=== PATIENT | female | born 1975 | race Two or more races ===

== ENCOUNTER → 2016-07-07 | Outpatient (CLI) | payer BC | LOC: RAD 13:49 | PROVIDERS: ATTEND Psychiatry & Neurology Neurology | DX: R51 Headache (principal); M54.2 Cervicalgia; R47.9 Unspecified speech disturbances; R41.3 Other amnesia; M47.892 Other spondylosis, cervical region | CPT/HCPCS: 70551; 72141 ==

== ENCOUNTER 2019-02-24 09:06 | Observation (INO) | payer BC ==
--- NOTE | 2019-02-24 09:42 | ER Document Report ---
ED Medical Screen (RME) - General Chief Complaint: Chest Pain Stated Complaint: CHEST PAIN Time Seen by Provider: 02/24/19 09:38 Primary Care Provider: DAVID JENNINGS MD [Primary Care Provider] - Follow up as needed TRAVEL OUTSIDE OF THE [place] IN LAST 30 DAYS: No - HPI Notes: 02/24/19 09:41 Patient is a 43-year-old female with a history of hypertension, seizure disorder who presents complaining of having left-sided chest pain that radiates to her left arm and left axilla that began at 9 PM last night and resolved at 4:30 AM today. Patient states that she did take her blood pressure pill around 6:00 this morning. She is currently feeling well. She did have some associated nausea, but did not have any shortness of breath or trouble breathing. Denies fever or recent illness otherwise. Denies any prolonged immobilization, distance travel, recent surgery/trauma, personal cancer history, hormone use, or previous DVT/PE. I have treated and performed a rapid initial assessment of this patient. A comprehensive ED assessment and evaluation of the patient, analysis of test results and completion of medical decision making process will be conducted by additional ED providers. PHYSICAL EXAMINATION: GENERAL: Well-appearing, well-nourished and in no acute distress. A&Ox4. Answers questions appropriately. LUNGS: Breath sounds clear to auscultation bilaterally and equal. No wheezes rales or rhonchi. HEART: Regular rate and rhythm without murmurs, rubs, gallops. Extremities: No cyanosis, clubbing, or edema b/l. Jamie negative bilaterally. No lower extremity asymmetry. NEUROLOGICAL: Normal speech, normal gait. PSYCH: Normal mood, normal affect. - Related Data Allergies/Adverse Reactions: peanut Allergy (Severe, Verified 09/01/15 07:17) Anaphylaxis Sulfa (Sulfonamide Antibiotics) Allergy (Intermediate, Verified 08/24/15 09:58) swell,redness Past Medical History - Social History Chew tobacco use (# tins/day): No Frequency of alcohol use: None Drug Abuse: None - Past Medical History Cardiac Medical History: Reports: Hx Hypertension - age 33 Denies: Hx Coronary Artery Disease, Hx Heart Attack Pulmonary Medical History: Reports: Hx Bronchitis Denies: Hx Asthma, Hx COPD, Hx Pneumonia Neurological Medical History: Denies: Hx Cerebrovascular Accident, Hx Seizures - after 2nd delivery 1 episode not sure it was seizure/no recall x 9 days GI Medical History: Reports: Hx Ulcerative Colitis Musculoskeltal Medical History: Reports Hx Arthritis - hands/right knee Past Surgical History: Reports: Hx Section - Immunizations Hx Diphtheria, Pertussis, Tetanus Vaccination: Yes Physical Exam - Vital signs Vitals: Temp Pulse Resp BP Pulse Ox 98.0 F 114 H 12 150/101 H 96 02/24/19 09:30 02/24/19 09:30 02/24/19 09:30 02/24/19 09:30 02/24/19 09:30 Course - Vital Signs Vital signs: Temp Pulse Resp BP Pulse Ox 98.0 F 114 H 12 150/101 H 96 02/24/19 09:30 02/24/19 09:30 02/24/19 09:30 02/24/19 09:30 02/24/19 09:30 Doctor's Discharge - Discharge Referrals: DAVID JENNINGS MD [Primary Care Provider] - Follow up as needed
[2019-02-24 10:16] LABS: ABSOLUTE BASOPHILS # (AUTO) 0.1 10^3/uL (0.0-0.2); ABSOLUTE EOSINOPHILS # (AUTO) 0.9 10^3/uL (0.0-0.6); ABSOLUTE LYMPHOCYTES (AUTO) 2.5 10^3/uL (0.5-4.7); ABSOLUTE MONOCYTES (AUTO) 0.5 10^3/uL (0.1-1.4); ABSOLUTE NEUT (AUTO) 5.7 10^3/uL (1.7-8.2); BASOPHILS % (AUTO) 0.8 % (0-2); EOSINOPHILS % (AUTO) 8.9 % (0-6); HEMOGLOBIN 14.4 g/dL (12.0-15.5); LYMPHOCYTES % (AUTO) 25.6 % (13-45); MEAN CORPUSCULAR HEMOGLOBIN 29.9 pg (27.0-33.4); MEAN CORPUSCULAR HGB CONC 33.4 g/dL (32.0-36.0); MEAN CORPUSCULAR VOLUME 90 fl (80-97); MONOCYTES % (AUTO) 5.5 % (3-13); PLATELET COUNT 319 10^3/uL (150-450); RED BLOOD COUNT 4.81 10^6/uL (3.72-5.28); RED CELL DISTRIBUTION WIDTH 14.3 % (11.5-14.0); SEGMENTED NEUTROPHILS % (AUTO) 59.2 % (42-78); TOTAL CELLS COUNTED % (AUTO) 100 %; WHITE BLOOD COUNT 9.7 10^3/uL (4.0-10.5)
[2019-02-24 10:26] LABS: APPEARANCE,URINE SLIGHTLY-CLOUDY; BILIRUBIN,URINE NEGATIVE (NEGATIVE); COLOR,URINE YELLOW; GLUCOSE, URINE NEGATIVE (NEGATIVE); KETONES,URINE NEGATIVE (NEGATIVE); PROTEIN,URINE NEGATIVE (NEGATIVE); URINE SPECIFIC GRAVITY 1.013; UROBILINOGEN,URINE NEGATIVE mg/dL (<2.0)
[2019-02-24 10:41] LABS: ALBUMIN 4.5 g/dL (3.5-5.0); ALKALINE PHOSPHATASE 96 U/L (38-126); ANION GAP 10 (5-19); ASPARTATE AMINO TRANSFERASE 26 U/L (14-36); BILIRUBIN,DIRECT 0.3 mg/dL (0.0-0.4); BILIRUBIN,TOTAL 0.3 mg/dL (0.2-1.3); BLOOD UREA NITROGEN 14 mg/dL (7-20); CARBON DIOXIDE 28 mmol/L (22-30); CHLORIDE 103 mmol/L (98-107); GLUCOSE 108 mg/dL (75-110); POTASSIUM 4.4 mmol/L (3.6-5.0); TOTAL PROTEIN 8.1 g/dL (6.3-8.2)
--- NOTE | 2019-02-24 11:10 | RADIOLOGY REPORT (SQ) ---
EXAM DESCRIPTION: CHEST 2 VIEWS COMPLETED DATE/TIME: 02/24/2019 10:42 am REASON FOR STUDY: CP COMPARISON: None. EXAM PARAMETERS: NUMBER OF VIEWS: two views TECHNIQUE: Digital Frontal and Lateral radiographic views of the chest acquired. RADIATION DOSE: NA LIMITATIONS: none FINDINGS: LUNGS AND PLEURA: No opacities, masses or pneumothorax. No pleural effusion. MEDIASTINUM AND HILAR STRUCTURES: No masses or contour abnormalities. HEART AND VASCULAR STRUCTURES: Heart normal size. No evidence for failure. BONES: No acute findings. HARDWARE: None in the chest. OTHER: Gas-filled colonic loops within the right upper quadrant. IMPRESSION: No evidence of acute intrathoracic process. TECHNICAL DOCUMENTATION: JOB ID: [id number] [employer]- All Rights Reserved Reading location - IP/workstation name: [email or web address]
[2019-02-24] MEDS ORDERED: ASPIRIN 325 MG TABLET PO ONE (12:26)
--- NOTE | 2019-02-24 12:34 | ER Document Report ---
ED Cardiac - General Chief Complaint: Chest Pain Stated Complaint: CHEST PAIN Time Seen by Provider: 02/24/19 09:38 Primary Care Provider: DAVID JENNINGS MD [NO LOCAL MD] - Follow up as needed Mode of Arrival: Ambulatory Information source: Patient TRAVEL OUTSIDE OF THE [place] IN LAST 30 DAYS: No - HPI Patient complains to provider of: Chest pain - Pt with h/o HTN with onset of L- sided CP beginning Last night. Pain resolved in early am but recurred with radiation down L arm just VISCOSITY TESTER. Pt. with FH of [place] in father. - Related Data Allergies/Adverse Reactions: peanut Allergy (Severe, Verified 09/01/15 07:17) Anaphylaxis Sulfa (Sulfonamide Antibiotics) Allergy (Intermediate, Verified 08/24/15 09:58) swell,redness Past Medical History - General Information source: Patient - Social History Smoking Status: Never Smoker Chew tobacco use (# tins/day): No Frequency of alcohol use: None Drug Abuse: None Family History: CAD Patient has suicidal ideation: No Patient has homicidal ideation: No - Past Medical History Cardiac Medical History: Reports: Hx Hypertension - age 33 Denies: Hx Coronary Artery Disease, Hx Heart Attack Pulmonary Medical History: Reports: Hx Bronchitis Denies: Hx Asthma, Hx COPD, Hx Pneumonia Neurological Medical History: Denies: Hx Cerebrovascular Accident, Hx Seizures - after 2nd delivery 1 episode not sure it was seizure/no recall x 9 days GI Medical History: Reports: Hx Ulcerative Colitis Musculoskeletal Medical History: Reports Hx Arthritis - hands/right knee Past Surgical History: Reports: Hx Section - Immunizations Hx Diphtheria, Pertussis, Tetanus Vaccination: Yes Review of Systems - Review of Systems Constitutional: No symptoms reported EENT: No symptoms reported Cardiovascular: See HPI, Chest pain Respiratory: No symptoms reported Gastrointestinal: No symptoms reported Musculoskeletal: No symptoms reported Neurological/Psychological: No symptoms reported -: Yes All other systems reviewed and negative Physical Exam - Vital signs Vitals: Temp Pulse Resp BP Pulse Ox 98.0 F 114 H 12 150/101 H 96 02/24/19 09:30 02/24/19 09:30 02/24/19 09:30 02/24/19 09:30 02/24/19 09:30 - General General appearance: Appears well In distress: None - HEENT Head: Normocephalic Pupils: PERRL Pharynx: Normal Neck: Normal - Respiratory Respiratory status: No respiratory distress Breath sounds: Normal - Cardiovascular Rhythm: Regular Heart sounds: Normal auscultation Murmur: No - Abdominal Bowel sounds: Normal Tenderness: Nontender - Extremities General upper extremity: Normal inspection General lower extremity: Normal inspection - Neurological Neuro grossly intact: Yes Cognition: Normal Orientation: AAOx4 Course - Re-evaluation Re-evalutation: 02/24/19 13:28 pt. feels much better after ASA and NTG -- I will call hospitalist for admission. - Vital Signs Vital signs: Temp Pulse Resp BP Pulse Ox 98.0 F 114 H 19 139/103 H 99 02/24/19 09:30 02/24/19 09:30 02/24/19 13:12 02/24/19 13:12 02/24/19 13:12 - Laboratory Result Diagrams: 02/24/19 09:54 02/24/19 09:54 Laboratory results interpreted by me: 02/24/19 02/24/19 09:54 09:54 RDW 14.3 H Eos % (Auto) 8.9 H Absolute Eos (auto) 0.9 H Est GFR (MDRD) Non-Af 59 L - Diagnostic Test Radiology reviewed: Reports reviewed - cxr- nad - EKG Interpretation by Me EKG shows normal: Sinus rhythm Rate: Tachycardia Rhythm: NSR - sinus tach. without acute change - Consults arben Schwarz Time consulted: 13:30 Consulted provider: will come to ER Critical Care Note - Critical Care Note Total time excluding time spent on procedures (mins): 30 Discharge - Discharge Clinical Impression: Chest pain Qualifiers: Chest pain type: other chest pain Qualified Code(s): R07.89 - Other chest pain; R07.8 - Other chest pain Condition: Stable Disposition: ADMITTED OBSERVATION Admitting Provider: Jaquelin (Hospitalist) Unit Admitted: Telemetry Referrals: DAVID JENNINGS MD [NO LOCAL MD] - Follow up as needed
[2019-02-24] MEDS ORDERED: CLONIDINE HCL 0.2 MG TABLET PO ONE (12:37)
[2019-02-24] MEDS ORDERED: NITROGLYCERIN 2% OINTMENT 1 GM PACKET TP ONE (13:24)
--- NOTE | 2019-02-24 13:52 | EKG REPORT ---
SEVERITY:- ABNORMAL ECG - SINUS TACHYCARDIA ABNRM R PROG, CONSIDER ASMI OR LEAD PLACEMENT : Confirmed by: Deyvi Coffey MD 24-Feb-2019 13:51:54
[2019-02-24] MEDS ORDERED: ALBUTEROL SULFATE 0.083% NEB 2.5 MG/3 ML AMPUL NEB PRN (14:11)
[2019-02-24] MEDS ORDERED: ONDANSETRON HCL INJ/PF 4 MG/2 ML SDV IV PRN (14:11)
[2019-02-24] MEDS ORDERED: PROMETHAZINE HCL INJ 25 MG/1 ML VIAL IV PRN (14:11)
[2019-02-24] MEDS ORDERED: MAG HYDROX/AL HYDROX/SIMETH SUSP 30 ML UDCUP PO PRN (14:11)
[2019-02-24] MEDS ORDERED: ACETAMINOPHEN 325 MG TABLET PO PRN (14:11)
[2019-02-24] MEDS ORDERED: MORPHINE SULFATE 10 MG/ML INJ IV PRN (14:18)
[2019-02-24] MEDS ORDERED: LORATADINE 10 MG TABLET PO PRN (18:01)
[2019-02-24] MEDS ORDERED: HYDRALAZINE HCL INJ/PF 20 MG/1 ML SDV IV PRN (18:02)
--- NOTE | 2019-02-24 18:07 | PDOC H&P ---
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 She denies alleviating or aggravating factors. Evaluation in the emergency department revealed Hypertension with blood pressure s 156/118, tachycardia (HR 110), unremarkable CBC, chemistry, negative troponin, negative d-dimer, negative lipase and amylase, normal urinalysis, benign EKG and chest x-ray. She is referred to the hospitalist service for admission and management of the above-stated complaints and findings. Past Medical History Cardiac Medical History: Reports: Hypertension Denies: Coronary Artery Disease, Myocardial Infarction Pulmonary Medical History: Reports: Bronchitis Denies: Asthma, Chronic Obstructive Pulmonary Disease (COPD), Pneumonia EENT Medical History: Reports: None Neurological Medical History: Reports: Migraine, Seizures Endocrine Medical History: Reports: None Renal/ Medical History: Reports: None Malignancy Medical History: Reports: None GI Medical History: Reports: Ulcerative Colitis Musculoskeltal Medical History: Reports: Arthritis - hands/right knee Skin Medical History: Reports: None Psychiatric Medical History: Reports: None Hematology: Reports: Anemia Infectious Medical History: Reports: None Past Surgical History Past Surgical History: Reports: Section, Other - Total colectomy Social History Information Source: Patient Lives with: Family Smoking Status: Never Smoker Electronic Cigarette use?: No Frequency of Alcohol Use: None Hx Recreational Drug Use: No Hx Prescription Drug Abuse: No - Advance Directive Resuscitation Status: Full Code Surrogate healthcare decision maker:: Patient's Family History Family History: CAD Parental Family History Reviewed: Yes Children Family History Reviewed: Yes Sibling(s) Family History Reviewed.: Yes Medication/Allergy Home Medications: Lisinopril 10 mg PO DAILY 08/24/15 Loratadine [Claritin 10 mg Tablet] 10 mg PO DAILYP PRN 08/24/15 Cyclobenzaprine HCl [Flexeril 5 mg Tablet] 5 mg PO Q8HP PRN 02/24/19 Divalproex Sodium [Depakote Er 250 Mg Tablet] 750 mg PO QHS 02/24/19 Allergies/Adverse Reactions: peanut Allergy (Severe, Verified 09/01/15 07:17) Anaphylaxis Sulfa (Sulfonamide Antibiotics) Allergy (Intermediate, Verified 08/24/15 09:58) swell,redness Review of Systems Constitutional: ABSENT: chills, fever(s), headache(s), weight gain, weight loss Eyes: ABSENT: visual disturbances Ears: ABSENT: hearing changes Cardiovascular: PRESENT: as per HPI, chest pain. ABSENT: dyspnea on exertion, edema, orthropnea, palpitations Respiratory: ABSENT: cough, hemoptysis Gastrointestinal: ABSENT: abdominal pain, constipation, diarrhea, hematemesis, hematochezia, nausea, vomiting Genitourinary: ABSENT: dysuria, hematuria Musculoskeletal: ABSENT: joint swelling Integumentary: ABSENT: rash, wounds Neurological: ABSENT: abnormal gait, abnormal speech, confusion, dizziness, focal weakness, syncope Psychiatric: ABSENT: anxiety, depression, homidical ideation, suicidal ideation Endocrine: ABSENT: cold intolerance, heat intolerance, polydipsia, polyuria Hematologic/Lymphatic: ABSENT: easy bleeding, easy bruising Physical Exam Vital Signs: Temp Pulse Resp BP Pulse Ox 98.0 F 114 H 14 100/68 95 02/24/19 09:30 02/24/19 09:30 02/24/19 17:01 02/24/19 17:01 02/24/19 17:01 Intake & Output 02/23/19 02/24/19 02/25/19 06:59 06:59 06:59 Weight 71.3 kg General appearance: PRESENT: no acute distress, cooperative, well-developed, well-nourished - Overweight Head exam: PRESENT: atraumatic, normocephalic Eye exam: PRESENT: conjunctiva pink, EOMI, PERRLA. ABSENT: scleral icterus Ear exam: PRESENT: normal external ear exam Mouth exam: PRESENT: moist, tongue midline Neck exam: ABSENT: carotid bruit, JVD, lymphadenopathy, thyromegaly Respiratory exam: PRESENT: clear to auscultation jules, symmetrical, unlabored. ABSENT: rales, rhonchi, wheezes Cardiovascular exam: PRESENT: RRR. ABSENT: diastolic murmur, rubs, systolic murmur Pulses: PRESENT: normal dorsalis pedis pul Vascular exam: PRESENT: normal capillary refill GI/Abdominal exam: PRESENT: normal bowel sounds, soft. ABSENT: distended, guarding, mass, organolmegaly, rebound, tenderness Rectal exam: PRESENT: deferred Extremities exam: PRESENT: full ROM. ABSENT: calf tenderness, clubbing, pedal edema Musculoskeletal exam: PRESENT: ambulatory Neurological exam: PRESENT: alert, awake, oriented to person, oriented to place, oriented to time, oriented to situation, CN II-XII grossly intact. ABSENT: mot or sensory deficit Psychiatric exam: PRESENT: appropriate affect, normal mood. ABSENT: homicidal ideation, suicidal ideation Skin exam: PRESENT: dry, intact, warm. ABSENT: cyanosis, rash Results Laboratory Results: 02/24/19 09:54 02/24/19 09:54 02/24/19 02/24/19 02/24/19 09:54 09:54 09:54 WBC 9.7 RBC 4.81 Hgb 14.4 Hct 43.0 MCV 90 MCH 29.9 MCHC 33.4 RDW 14.3 H Plt Count 319 Seg Neutrophils % 59.2 Sodium 140.9 Potassium 4.4 Chloride 103 Carbon Dioxide 28 Anion Gap 10 BUN 14 Creatinine 1.02 Est GFR ( Amer) > 60 Glucose 108 Calcium 10.0 Total Bilirubin 0.3 AST 26 Alkaline Phosphatase 96 Total Protein 8.1 Albumin 4.5 Amylase Lipase Urine Color YELLOW Urine Appearance SLIGHTLY-CLOUDY Urine pH 6.0 Ur Specific [place] 1.013 Urine Protein NEGATIVE Urine Glucose (UA) NEGATIVE Urine Ketones NEGATIVE Urine Blood NEGATIVE Urine RBC (Auto) 0 02/24/19 09:54 WBC RBC Hgb Hct MCV MCH MCHC RDW Plt Count Seg Neutrophils % Sodium Potassium Chloride Carbon Dioxide Anion Gap BUN Creatinine Est GFR ( Amer) Glucose Calcium Total Bilirubin AST Alkaline Phosphatase Total Protein Albumin Amylase 81 Lipase 78.7 Urine Color Urine Appearance Urine pH Ur Specific [place] Urine Protein Urine Glucose (UA) Urine Ketones Urine Blood Urine RBC (Auto) 02/24/19 02/24/19 09:54 15:32 Troponin I < 0.012 < 0.012 Impressions: Chest X-Ray 02/24/19 09:42 IMPRESSION: No evidence of acute intrathoracic process. Assessment and Plan - Diagnosis (1) Hypertensive urgency Is this a current diagnosis for this admission?: Yes Plan: Blood pressure is now well controlled with medications as provided by the ED provider (nitroglycerin patch, hydralazine, and clonidine). We will continue her home dose lisinopril. Cardiac diet. IV hydralazine as needed for blood pressure control. (2) Chest pain Is this a current diagnosis for this admission?: Yes Plan: EKG is negative for acute findings. Chest x-ray benign. Troponins negative x2; will continue to trend. Patient is admitted to the medical floor on continuous cardiac telemetry. Daily aspirin and statin therapy. We will check TSH, lipid panel, and A1c with a.m. lab work. Stress test in the morning. (3) Seizure disorder Is this a current diagnosis for this admission?: Yes Plan: Continue home dose Depakote. - Time Time Spent with patient: 35 or more minutes Medications reviewed and adjusted accordingly: Yes Anticipated discharge: Home Within: within 24 hours
[2019-02-24] MEDS ORDERED: ATORVASTATIN CALCIUM 20 MG TABLET PO SCH (22:00)
[2019-02-24] MEDS ORDERED: DIVALPROEX SODIUM 250 MG TAB.SR.24H PO SCH (22:00)
[2019-02-24] MEDS: FAMOTIDINE 20 MG TABLET PO SCH (22:44)
[2019-02-24] MEDS: HEPARIN SOD (PORCINE) 5,000 UNIT/ML 1 ML VIAL SUBCUT SCH (22:44)
[2019-02-25] MEDS: HEPARIN SOD (PORCINE) 5,000 UNIT/ML 1 ML VIAL SUBCUT SCH (05:31)
[2019-02-25 07:13] LABS: HEMATOCRIT 40.6 % (36.0-47.0); HEMOGLOBIN 13.6 g/dL (12.0-15.5); MEAN CORPUSCULAR HGB CONC 33.6 g/dL (32.0-36.0); MEAN CORPUSCULAR VOLUME 89 fl (80-97); PLATELET COUNT 275 10^3/uL (150-450); RED BLOOD COUNT 4.55 10^6/uL (3.72-5.28); RED CELL DISTRIBUTION WIDTH 14.1 % (11.5-14.0); WHITE BLOOD COUNT 7.5 10^3/uL (4.0-10.5)
[2019-02-25 07:34] LABS: ANION GAP 9 (5-19); BLOOD UREA NITROGEN 15 mg/dL (7-20); CALCIUM 9.2 mg/dL (8.4-10.2); CARBON DIOXIDE 28 mmol/L (22-30); CHLORIDE 104 mmol/L (98-107); CHOLESTEROL 190.14 mg/dL (0-200); GLUCOSE 87 mg/dL (75-110); POTASSIUM 4.8 mmol/L (3.6-5.0); TRIGLYCERIDES 180 mg/dL (<150)
[2019-02-25 07:44] LABS: DIRECT LDL 127 mg/dL (<100)
[2019-02-25 08:39] VITALS: BP 104/69
[2019-02-25] MEDS ORDERED: LISINOPRIL 10 MG TABLET PO SCH (10:00)
[2019-02-25] MEDS ORDERED: ASPIRIN 81 MG TABLET, CHEWABLE PO SCH (10:00)
[2019-02-25] MEDS ORDERED: DOCUSATE SODIUM 100 MG CAPSULE PO SCH (10:00)
[2019-02-25] MEDS: FAMOTIDINE 20 MG TABLET PO SCH (10:07)
--- NOTE | 2019-02-25 16:49 | PDOC DISCHARGE SUMMARY ---
Impression - Admit/DC Date/PCP Admission Date/Primary Care Provider: 02/24/19 15:41 Discharge Date: 02/25/19 - Discharge Diagnosis (1) Hypertensive urgency Is this a current diagnosis for this admission?: Yes (2) Chest pain Is this a current diagnosis for this admission?: Yes (3) Seizure disorder Is this a current diagnosis for this admission?: Yes - Additional Information Resuscitation Status: Full Code Discharge Diet: Cardiac Discharge Activity: Activity As Tolerated, Balance Activity w/Rest, Slowly Increase Activity Referrals: DAVID JENNINGS MD [NO LOCAL MD] - Follow up as needed DACIA HAQ MD [ACTIVE STAFF] - (Follow up within 2-4 weeks) Prescriptions: Atorvastatin Calcium [Lipitor 10 mg Tablet] 10 mg PO QHS #30 tablet Home Medications: Lisinopril 10 mg PO DAILY 08/24/15 Loratadine [Claritin 10 mg Tablet] 10 mg PO DAILYP PRN 08/24/15 Cyclobenzaprine HCl [Flexeril 5 mg Tablet] 5 mg PO Q8HP PRN 02/24/19 Divalproex Sodium [Depakote ER 250 mg Tablet] 750 mg PO QHS 02/24/19 Acetaminophen [Tylenol 325 mg Tablet] 650 mg PO Q4HP PRN tablet 02/25/19 Aspirin [Aspirin 81 mg Chewable Tablet] 81 mg PO DAILY tab.chew 02/25/19 Atorvastatin Calcium [Lipitor 10 mg Tablet] 10 mg PO QHS #30 tablet 02/25/19 Docusate Sodium [Colace 100 mg Capsule] 100 mg PO DAILY capsule 02/25/19 History of Present Illiness History of Present Illness: GLENN NAPIER is a 43 year old female with a past medical history significant for HTN and UC s/p total colectomy (now w/ J-pouch) who presented to the [facility] today with a complaint of sudden onset chest pain radiating to her left shoulder beginning last night associated with nausea (no emesis). She denies alleviating or aggravating factors. Evaluation in the emergency department revealed Hypertension with blood pressures 156/118, tachycardia (HR 110), unremarkable CBC, chemistry, negative troponin, negative d-dimer, negative lipase and amylase, normal urinalysis, benign EKG and chest x-ray. She is referred to the hospitalist service for admission and management of the above-stated complaints and findings. Hospital Course Hospital Course: The patient was admitted to the medical floor on continuous cardiac telemetry. She had no further episodes of chest discomfort overnight. She remained in normal sinus rhythm. Cardiac enzymes trended normal. A1c was normal, TSH is normal, and lipid panel was borderline; after discussion with patient, patient is started on low-dose atorvastatin at discharge. The patient did not require any further interventions for her hypertension following admission from the ED; BP has remained stable on her home regimen only. The patient is low risk for acute cardiac event; therefore she is discharged to home with instructions to follow-up with her primary care provider within 1 week, cardiology within 2 to 4 weeks for further cardiac evaluation, and to return to the emergency department as needed for concerning symptoms. Patient is discharged home in stable condition. She is advised to continue her home dose lisinopril. She is started on low dose atorvastatin. Dietary and lifestyle modification are encouraged. She is instructed to return to the emergency department as needed for concerning symptoms. Physical Exam Vital Signs: Temp Pulse Resp BP Pulse Ox 97.6 F 81 17 104/69 100 02/25/19 10:19 02/25/19 10:19 02/25/19 10:19 02/25/19 10:19 02/25/19 10:19 Intake & Output 02/24/19 02/25/19 02/26/19 06:59 06:59 06:59 Weight 71.3 kg General appearance: PRESENT: no acute distress, well-developed, well-nourished Head exam: PRESENT: atraumatic, normocephalic Eye exam: PRESENT: conjunctiva pink, EOMI, PERRLA. ABSENT: scleral icterus Ear exam: PRESENT: normal external ear exam Mouth exam: PRESENT: moist, tongue midline Neck exam: ABSENT: carotid bruit, JVD, lymphadenopathy, thyromegaly Respiratory exam: PRESENT: clear to auscultation jules. ABSENT: rales, rhonchi, wheezes Cardiovascular exam: PRESENT: RRR. ABSENT: diastolic murmur, rubs, systolic murmur Pulses: PRESENT: normal dorsalis pedis pul Vascular exam: PRESENT: normal capillary refill GI/Abdominal exam: PRESENT: normal bowel sounds, soft. ABSENT: distended, guarding, mass, organolmegaly, rebound, tenderness Rectal exam: PRESENT: deferred Extremities exam: PRESENT: full ROM. ABSENT: calf tenderness, clubbing, pedal edema Neurological exam: PRESENT: alert, awake, oriented to person, oriented to place, oriented to time, oriented to situation, CN II-XII grossly intact. ABSENT: motor sensory deficit Psychiatric exam: PRESENT: appropriate affect, normal mood. ABSENT: homicidal ideation, suicidal ideation Skin exam: PRESENT: dry, intact, warm. ABSENT: cyanosis, rash Results Laboratory Results: WBC 7.5 10^3/uL (4.0-10.5) 02/25/19 06:59 RBC 4.55 10^6/uL (3.72-5.28) 02/25/19 06:59 Hgb 13.6 g/dL (12.0-15.5) 02/25/19 06:59 Hct 40.6 % (36.0-47.0) 02/25/19 06:59 MCV 89 fl (80-97) 02/25/19 06:59 MCH 30.0 pg (27.0-33.4) 02/25/19 06:59 MCHC 33.6 g/dL (32.0-36.0) 02/25/19 06:59 RDW 14.1 % (11.5-14.0) H 02/25/19 06:59 Plt Count 275 10^3/uL (150-450) 02/25/19 06:59 Lymph % (Auto) 25.6 % (13-45) 02/24/19 09:54 [place] % (Auto) 5.5 % (3-13) 02/24/19 09:54 Eos % (Auto) 8.9 % (0-6) H 02/24/19 09:54 Baso % (Auto) 0.8 % (0-2) 02/24/19 09:54 Absolute Neuts (auto) 5.7 10^3/uL (1.7-8.2) 02/24/19 09:54 Absolute Lymphs (auto) 2.5 10^3/uL (0.5-4.7) 02/24/19 09:54 Absolute Monos (auto) 0.5 10^3/uL (0.1-1.4) 02/24/19 09:54 Absolute Eos (auto) 0.9 10^3/uL (0.0-0.6) H 02/24/19 09:54 Absolute Basos (auto) 0.1 10^3/uL (0.0-0.2) 02/24/19 09:54 Seg Neutrophils % 59.2 % (42-78) 02/24/19 09:54 D-Dimer < 0.27 ug/mL (0.00-0.50) 02/24/19 09:54 Sodium 140.7 mmol/L (137-145) 02/25/19 06:59 Potassium 4.8 mmol/L (3.6-5.0) 02/25/19 06:59 Chloride 104 mmol/L (98-107) 02/25/19 06:59 Carbon Dioxide 28 mmol/L (22-30) 02/25/19 06:59 Anion Gap 9 (5-19) 02/25/19 06:59 BUN 15 mg/dL (7-20) 02/25/19 06:59 Creatinine 0.86 mg/dL (0.52-1.25) 02/25/19 06:59 Est GFR ( Amer) > 60 (>60) 02/25/19 06:59 Est GFR (MDRD) Non-Af > 60 (>60) 02/25/19 06:59 Glucose 87 mg/dL (75-110) 02/25/19 06:59 Hemoglobin A1c % 5.9 % (4.7-6.0) 02/25/19 06:59 Calcium 9.2 mg/dL (8.4-10.2) 02/25/19 06:59 Total Bilirubin 0.3 mg/dL (0.2-1.3) 02/24/19 09:54 Direct Bilirubin 0.3 mg/dL (0.0-0.4) 02/24/19 09:54 Neonat Total Bilirubin Not Reportable 02/24/19 09:54 Neonat Direct Bilirubin Not Reportable 02/24/19 09:54 Neonat Indirect Bili Not Reportable 02/24/19 09:54 AST 26 U/L (14-36) 02/24/19 09:54 ALT 33 U/L (<35) 02/24/19 09:54 Alkaline Phosphatase 96 U/L (38-126) 02/24/19 09:54 Troponin I < 0.012 ng/mL 02/24/19 20:24 Total Protein 8.1 g/dL (6.3-8.2) 02/24/19 09:54 Albumin 4.5 g/dL (3.5-5.0) 02/24/19 09:54 Triglycerides 180 mg/dL (<150) H 02/25/19 06:59 Cholesterol 190.14 mg/dL (0-200) 02/25/19 06:59 LDL Cholesterol Direct 127 mg/dL (<100) H 02/25/19 06:59 VLDL Cholesterol 36.0 mg/dL (10-31) H 02/25/19 06:59 HDL Cholesterol 37 mg/dL (>40) L 02/25/19 06:59 Amylase 81 U/L (30-110) 02/24/19 09:54 Lipase 78.7 U/L (23-300) 02/24/19 09:54 TSH 1.83 uIU/mL (0.47-4.68) 02/25/19 06:59 Urine Color YELLOW 02/24/19 09:54 Urine Appearance SLIGHTLY-CLOUDY 02/24/19 09:54 Urine pH 6.0 (5.0-9.0) 02/24/19 09:54 Ur Specific [place] 1.013 02/24/19 09:54 Urine Protein NEGATIVE mg/dL (NEGATIVE) 02/24/19 09:54 Urine Glucose (UA) NEGATIVE mg/dL (NEGATIVE) 02/24/19 09:54 Urine Ketones NEGATIVE mg/dL (NEGATIVE) 02/24/19 09:54 Urine Blood NEGATIVE (NEGATIVE) 02/24/19 09:54 Urine Nitrite (Reflex) NEGATIVE (NEGATIVE) 02/24/19 09:54 Urine Bilirubin NEGATIVE (NEGATIVE) 02/24/19 09:54 Urine Urobilinogen NEGATIVE mg/dL (<2.0) 02/24/19 09:54 Leukocyte Esterase Rfl NEGATIVE (NEGATIVE) 02/24/19 09:54 Urine RBC (Auto) 0 /HPF 02/24/19 09:54 Urine Bacteria (Auto) TRACE /HPF 02/24/19 09:54 Urine WBC (Reflex) < 1 /HPF 02/24/19 09:54 Squamous Epi Cells Auto 6 /HPF 02/24/19 09:54 Urine Mucus (Auto) RARE /LPF 12/31/19 09:54 Urine Ascorbic Acid NEGATIVE (NEGATIVE) 02/24/19 09:54 Urine HCG, Qual NEGATIVE (NEGATIVE) 02/24/19 09:54 02/24/19 02/24/19 02/24/19 09:54 15:32 20:24 Troponin I < 0.012 < 0.012 < 0.012 Impressions: Chest X-Ray 02/24/19 09:42 IMPRESSION: No evidence of acute intrathoracic process. Plan Plan of Treatment: The patient is discharged home in stable condition. She is advised to follow-up with her primary care provider within 1 week. She is encouraged to follow-up with Dr. Rubia Haq, video production coordinator, for further cardiac evaluation within the next 2 to 4 weeks. She is instructed to continue her home dose lisinopril. She is encouraged to check her blood pressure daily and to keep a log to present to her primary care provider. She is encouraged to avoid excessive caffeine, tobacco, and alcohol use. Decrease sodium intake. She is instructed to return to the emergency department as needed for concerning symptoms. Time Spent: Greater than 30 Minutes Stroke Is this a Stroke Patient?: No Acute Heart Failure - Is this a Heart Failure Patient?: No
== END 2019-02-25 10:35 | disposition home or self-care (01) ==
LOC: ER 09:06 → EH 15:41 → 4S 21:59 → 4N 22:00
PROVIDERS: ADMIT Internal Medicine; ATTEND Internal Medicine
DX: I16.0 Hypertensive urgency (principal); R07.9 Chest pain, unspecified; G40.909 Epilepsy, unspecified, not intractable, without status epilepticus; R00.0 Tachycardia, unspecified; Z82.49 Family history of ischemic heart disease and other diseases of the circulatory system; Z87.19 Personal history of other diseases of the digestive system; Z79.899 Other long term (current) drug therapy; Z79.82 Long term (current) use of aspirin; Z98.0 Intestinal bypass and anastomosis status; Z90.49 Acquired absence of other specified parts of digestive tract
CPT/HCPCS: 93005; 99291; 96374; 36415 ×2; 82150; 83690; 84443; 85025; 85027; 81025; 80048; 80053; 81001; 84484; 83036; 85379; 80061; 71046; 93010; G0378 ×3; J1644 ×2; J3490; J2405